=== PATIENT | female | born 1990 | race Two or more races ===

== ENCOUNTER 2018-09-08 08:30 | Outpatient (CLI) | payer OTHER | END 2018-09-08 08:31 | disposition critical access hospital (66) | LOC: EMS 08:30 | PROVIDERS: ATTEND Surgery | DX: R41.0 Disorientation, unspecified (principal); R45.1 Restlessness and agitation | CPT/HCPCS: A0425; A0429 ==

== ENCOUNTER 2018-09-08 08:41 | Emergency (ER) | payer OTHER ==
[2018-09-08] MEDS ORDERED: SODIUM CHLORIDE 0.9% 1,000 ML IV ONE (08:57)
--- NOTE | 2018-09-08 09:01 | ED Physician Documentation ---
PD HPI ALTERED MENTAL STATUS - Stated complaint Stated Complaint: MHE - Chief complaint Chief Complaint: General - History obtained from History obtained from: EMS - History of Present Illness Timing - onset: Today Timing - details: Still present Quality / character: Disoriented, Agitated, Combative Basline status: Alert and oriented X 3, Ambulatory - Additional information Additional information: The patient is a 28-year-old female who arrives via ambulance after her significant other called 911. She and the patient were in a verbal dispute last night. Her mental status was normal at that time. This morning she was disoriented, agitated, and combative. She has a history of using hallucinogenic drugs, such as peyote and spice. History is not able to be obtained from the patient due to her confusion and agitation. There are no past medical records at this facility on this patient. Review of Systems Unable to obtain: AMS PD PAST MEDICAL HISTORY - Present Medications Home Medications: Ambulatory Orders Medication Instructions Recorded Confirmed No Known Home Medications 09/08/18 09/08/18 - Allergies Allergies/Adverse Reactions: Allergies Allergy/AdvReac Type Severity Reaction Status Date / Time No Known Drug Allergies Allergy Verified 09/08/18 08:48 PD ED PE NORMAL - Vitals Vital signs reviewed: Yes (Tachycardic) - General General: Well developed/nourished, Other (Alert, restrained in soft restraints, and vacillating between extreme agitation, yelling obscenities, and calmness, speaking gibberish.) - HEENT HEENT: Atraumatic, PERRL, EOMI, Moist mucous membranes - Neck Neck: Supple, no meningeal sign, No adenopathy - Cardiac Cardiac: Other (Rapid rate, regular rhythm.) - Respiratory Respiratory: No respiratory distress, Clear bilaterally - Abdomen Abdomen: Soft, Non tender - Derm Derm: No rash - Extremities Extremities: No tenderness to palpate, No edema, No calf tenderness / cord - Neuro Neuro: No motor deficit, Other (Alert and vacillating between calm and agitation. Speaking some words that are understandable, but with repetitive phrases trailing off into gibberish.) Eye Opening: Spontaneous Motor: Obeys Commands Verbal: Incomprehensible GCS Score: 12 Results - Vitals Vitals: Oxygen O2 Source Room air - Labs Labs: Laboratory Tests 09/08/18 09/08/18 09/08/18 09:07 09:07 09:07 WBC 11.7 H RBC 4.32 Hgb 13.2 Hct 38.4 MCV 89.0 MCH 30.5 MCHC 34.3 RDW 12.5 Plt Count 249 MPV 8.6 Neut # (Auto) 10.1 H Lymph # (Auto) 1.1 L Runnels # (Auto) 0.4 Eos # (Auto) 0.0 Baso # (Auto) 0.1 Absolute Nucleated RBC 0.00 Nucleated RBC % 0.0 Sodium 135 Potassium 3.5 Chloride 104 Carbon Dioxide 20 L Anion Gap 11.0 BUN 5 L Creatinine 1.0 Estimated GFR (MDRD) 67 L Glucose 119 H Calcium 8.9 Total Bilirubin 0.5 AST 170 H ALT 62 H Alkaline Phosphatase 47 Total Protein 7.7 Albumin 4.6 Globulin 3.1 Albumin/Globulin Ratio 1.5 Lipase 29 HCG, Quant < 0.60 Urine Opiates Screen Ur Oxycodone Screen Urine Methadone Screen Ur Propoxyphene Screen Ur Barbiturates Screen Ur Tricyclics Screen Ur Phencyclidine Scrn Ur Amphetamine Screen U Methamphetamines Scrn U Benzodiazepines Scrn Urine Cocaine Screen U Cannabinoids Screen 09/08/18 10:01 WBC RBC Hgb Hct MCV MCH MCHC RDW Plt Count MPV Neut # (Auto) Lymph # (Auto) Runnels # (Auto) Eos # (Auto) Baso # (Auto) Absolute Nucleated RBC Nucleated RBC % Sodium Potassium Chloride Carbon Dioxide Anion Gap BUN Creatinine Estimated GFR (MDRD) Glucose Calcium Total Bilirubin AST ALT Alkaline Phosphatase Total Protein Albumin Globulin Albumin/Globulin Ratio Lipase HCG, Quant Urine Opiates Screen NEGATIVE Ur Oxycodone Screen NEGATIVE Urine Methadone Screen NEGATIVE Ur Propoxyphene Screen NEGATIVE Ur Barbiturates Screen NEGATIVE Ur Tricyclics Screen NEGATIVE Ur Phencyclidine Scrn NEGATIVE Ur Amphetamine Screen NEGATIVE U Methamphetamines Scrn NEGATIVE U Benzodiazepines Scrn NEGATIVE Urine Cocaine Screen NEGATIVE U Cannabinoids Screen NEGATIVE PD MEDICAL DECISION MAKING - ED course Complexity details: reviewed results, re-evaluated patient, considered differential, d/w patient ED course: The patient's transiently altered mental status is most likely caused by drug ingestion. Although her urine tox screen is negative for the drugs tested, the patient admits to using spice, which would not necessarily be detected on the urine tox screen. She was initially incoherent, with episodic agitation requiring soft restraints. Her laboratory evaluation was unremarkable. She was observed in the emergency department for several hours, during which time her mental status cleared and she became coherent. Her female partner was at her bedside, and appeared supportive. They declined consultation by medical facilities section director regarding drug use and coping mechanisms for relationship stress. The patient denies suicidal ideation. She is being discharged with contact information for outpatient counseling services if she chooses to pursue those services. Departure - Departure Disposition: 01 Home, Self Care Clinical Impression: Agitation Condition: Stable Instructions: ED Stress React Follow-Up: VERA Valadez [Provider Group] Comments: Refrain from using hallucinogenic drugs. Follow-up with your primary physician. Call to schedule appointment. Return to the emergency department if you develop increasing stress, agitation, or otherwise worsening symptoms. Discharge Date/Time: 09/08/18 12:07
[2018-09-08 09:25] LABS: BASOPHILS # (AUTO) 0.1 10^3/uL (0.0-0.1); HGB - HEMOGLOBIN 13.2 g/dL (12.0-16.0); LYMPHOCYTES # (AUTO) 1.1 10^3/uL (1.5-3.5); LYMPHOCYTES % (AUTO) 9.4 %; MEAN CORPUSCULAR HEMOGLOBIN 30.5 pg (27.0-31.0); MEAN CORPUSCULAR HGB CONC 34.3 g/dL (32.0-36.0); MEAN PLATELET VOLUME 8.6 fL (7.9-10.8); MONOCYTES # (AUTO) 0.4 10^3/uL (0.0-1.0); MONOCYTES % (AUTO) 3.6 %; NEUTROPHILS # (AUTO) 10.1 10^3/uL (1.5-6.6); PLT - PLATELET COUNT 249 10^3/uL (130-450); RED BLOOD COUNT 4.32 10^6/uL (4.20-5.40); RED CELL DISTRIBUTION WIDTH 12.5 % (12.0-15.0); WHITE BLOOD COUNT 11.7 x10^3/uL (4.8-10.8)
[2018-09-08 09:28] LABS: ALBUMIN 4.6 g/dL (3.2-5.5); ALBUMIN/GLOBULIN RATIO 1.5 (1.0-2.2); BILIRUBIN,TOTAL 0.5 mg/dL (0.2-1.0); CALCIUM 8.9 mg/dL (8.5-10.3); TOTAL PROTEIN 7.7 g/dL (6.7-8.2)
[2018-09-08 10:09] LABS: MUDS CUTOFF CONCENTRATIONS CUTOFF CONC BELOW:
[2018-09-08 10:28] LABS: AMPHETAMINE SCREEN,URINE NEGATIVE (NEGATIVE); BENZODIAZEPINES SCREEN, URINE NEGATIVE (NEGATIVE); COCAINE SCREEN URINE NEGATIVE (NEGATIVE); METHADONE SCREEN, URINE NEGATIVE (NEGATIVE); METHAMPHETAMINES SCREEN, URINE NEGATIVE (NEGATIVE); OPIATE SCREEN, URINE NEGATIVE (NEGATIVE); OXYCODONE SCREEN, URINE NEGATIVE (NEGATIVE); PROPOXYPHENE SCREEN, URINE NEGATIVE (NEGATIVE); TRICYCLIC ANTIDEPRESSANT,URINE NEGATIVE (NEGATIVE)
[2018-09-08 12:05] VITALS: BP 110/64
== END 2018-09-08 12:07 | disposition home or self-care (01) ==
LOC: ED 08:41
DX: R45.1 Restlessness and agitation (principal)
CPT/HCPCS: 36415; 80053; 80306; 83690; 84702; 85025; 96360; 96361; 99283; 99284

== ENCOUNTER 2018-10-22 16:23 | Emergency (ER) | payer OTHER ==
[2018-10-22] MEDS ORDERED: HYDROcod/ACETAM 5/325 MG TABLET PO STA (16:30)
--- NOTE | 2018-10-22 16:31 | ED Physician Documentation ---
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 No other injuries.) Review of Systems Constitutional: reports: Reviewed and negative Cardiac: reports: Reviewed and negative Respiratory: reports: Reviewed and negative PD PAST MEDICAL HISTORY - Past Surgical History Past Surgical History: No - Present Medications Home Medications: Ambulatory Orders Medication Instructions Recorded Confirmed Hydrocodone/Acetaminophen 1 - 2 each PO Q6H PRN #7 tablet 10/22/18 [Hydrocodon-Acetaminophen 5-325] Ibuprofen [Motrin] 800 mg PO Q8H PRN #30 tablet 10/22/18 - Allergies Allergies/Adverse Reactions: Allergies Allergy/AdvReac Type Severity Reaction Status Date / Time No Known Drug Allergies Allergy Verified 10/22/18 16:33 - Social History Does the pt smoke?: Yes Smoking Status: Current every day smoker - Immunizations Immunizations are current?: Yes PD ED PE NORMAL - Vitals Vital signs reviewed: Yes - General General: Alert and oriented X 3, No acute distress - Extremities Extremities: Other (There is a tiny laceration, may be 2 mm near the tip of the fourth finger nail on the ulnar side and she is tender back to the mid phalanx. There is no deformity. There is about a 10% subungual hematoma.) - Neuro Neuro: Alert and oriented X 3, Normal speech Results - Vitals Vitals: Vital Signs - 24 hr 10/22/18 16:30 Temperature 36.3 C L Heart Rate 84 Respiratory 16 Rate Blood Pressure 118/79 O2 Saturation 100 Oxygen O2 Source Room air - Rads (name of study) R 4th finger Radiology: EMP read contemporaneously (normal) Departure - Departure Disposition: 01 Home, Self Care Clinical Impression: Injury of right ring finger Condition: Good Record reviewed to determine appropriate education?: Yes Instructions: ED Crush Injury Finger No Fx Prescriptions: Hydrocodone/Acetaminophen [Hydrocodon-Acetaminophen 5-325] 1 - 2 each PO Q6H PRN #7 tablet PRN Reason: pain Ibuprofen [Motrin] 800 mg PO Q8H PRN #30 tablet PRN Reason: PAIN &/OR FEVER Comments: You can wash the wound on the tip of your finger with soap and water and keep it covered with a Band-Aid. Recheck with your doctor in a week if not better. Discharge Date/Time: 10/22/18 17:01
[2018-10-22 16:33] VITALS: BP 118/79
--- NOTE | 2018-10-22 17:10 | XRAY Report ---
Reason: 4th finger inj Procedure Date: 10/22/2018 Accession Number: [id number] / [id number] Procedure: XR - Finger(s) RT CPT Code: FULL RESULT: EXAM: RIGHT FOURTH DIGIT RADIOGRAPHY EXAM DATE: 10/22/2018 04:41 PM. CLINICAL HISTORY: 4th finger injury. Caught the fourth digit with a lawnmower blade. COMPARISON: None. TECHNIQUE: 3 views. FINDINGS: Bones: Normal. No fracture or bone lesion. Joints: Normal. No subluxations. Soft Tissues: Normal. No soft tissue swelling. IMPRESSION: Normal digit radiography. [facility]
== END 2018-10-22 17:01 | disposition home or self-care (01) ==
LOC: ED 16:23
DX: S69.91XA Unspecified injury of right wrist, hand and finger(s), initial encounter (principal); S61.214A Laceration without foreign body of right ring finger without damage to nail, initial encounter; S60.141A Contusion of right ring finger with damage to nail, initial encounter; W28.XXXA Contact with powered lawn mower, initial encounter; Y92.009 Unspecified place in unspecified non-institutional (private) residence as the place of occurrence of the external cause; F17.200 Nicotine dependence, unspecified, uncomplicated
CPT/HCPCS: 73140; 99283; A9270

== ENCOUNTER 2019-03-23 07:03 | Emergency (ER) | payer OTHER ==
[2019-03-23 07:16] VITALS: BP 112/67
--- NOTE | 2019-03-23 07:48 | XRAY Report ---
Reason: internal pain Procedure Date: 03/23/2019 Accession Number: [id number] / [id number] Procedure: XR - Knee 4 View RT CPT Code: FULL RESULT: EXAM: RIGHT KNEE RADIOGRAPHY EXAM DATE: 03/23/2019 07:38 AM. CLINICAL HISTORY: Internal pain. COMPARISON: None. TECHNIQUE: 4 views. FINDINGS: Bones: Normal. No fractures or bone lesions. Joints: Normal. No effusion. No subluxations. Soft Tissues: Normal. No soft tissue swelling. IMPRESSION: Normal knee radiography. RADIA
--- NOTE | 2019-03-23 07:58 | ED Physician Documentation ---
PD HPI LOWER EXT INJURY - Stated complaint Stated Complaint: KNEE PX - Chief complaint Chief Complaint: Trauma Ext - History obtained from History obtained from: Patient - History of Present Illness PD HPI LOW EXT INJURY LOCATION: Right, Knee Where injury occurred: Home Timing - onset: Last night Timing - duration: Hours Timing - details: Abrupt onset, Still present Improved by: Rest, Immobilization Worsened by: Moving, Palpating Associated symptoms: No: Weakness, Numbness, Tingling, Swelling Contributing factors: No: Anticoagulated Similar symptoms before: Diagnosis (ACL and MCL tear from injury to other knee) Recently seen: Not recently seen - Additional information Additional information: Previously well 28-year-old female was putting up some hollowing decorations yesterday when she bent down and flexed her knee completely she heard a loud pop and since then has had some pain in her knee and some difficulty walking. She has pain with weightbearing and she is able to walk but with a limp. She has had injury to her left knee that required surgical intervention she had a ACL tear. That was related to an injury. Review of Systems Constitutional: denies: Fever Eyes: denies: Decreased vision Ears: denies: Ear pain Nose: denies: Congestion Throat: denies: Sore throat Respiratory: denies: Cough GI: denies: Vomiting PD PAST MEDICAL HISTORY - Past Medical History Past Medical History: No - Past Surgical History Past Surgical History: No Ortho: Knee replacement HEENT: Tonsil/Adenoidectomy - Present Medications Home Medications: Ambulatory Orders Medication Instructions Recorded Confirmed No Known Home Medications 03/23/19 03/23/19 - Allergies Allergies/Adverse Reactions: Allergies Allergy/AdvReac Type Severity Reaction Status Date / Time No Known Drug Allergies Allergy Verified 03/23/19 07:16 - Social History Does the pt smoke?: Yes Smoking Status: Current every day smoker Does the pt drink ETOH?: No Does the pt have substance abuse?: No - Immunizations Immunizations are current?: Yes - POLST Patient has POLST: No PD ED PE NORMAL - Vitals Vital signs reviewed: Yes (normal ) - General General: Alert and oriented X 3, No acute distress, Well developed/nourished - HEENT HEENT: Atraumatic, PERRL, EOMI - Respiratory Respiratory: No respiratory distress - Derm Derm: Normal color, Warm and dry, No rash - Extremities Extremities: No deformity, No edema, Other (Exam of the right knee externally appears normal without joint line pain to palpation. There is no obvious effusion. The knee is able to run through a full ROM. There does appear to be some mild laxity to the ACL on anterior drawer sign. The lateral collaterals appear stable to testing. ) - Neuro Neuro: Alert and oriented X 3, consular officer 2-12 intact, No motor deficit, No sensory deficit, Normal speech Eye Opening: Spontaneous Motor: Obeys Commands Verbal: Oriented GCS Score: 15 - Psych Psych: Normal mood, Normal affect Results - Vitals Vitals: Vital Signs - 24 hr 03/23/19 07:10 Temperature 36.1 C L Heart Rate 76 Respiratory 16 Rate Blood Pressure 112/67 O2 Saturation 100 Oxygen O2 Source Room air - Rads (name of study) knee Radiology: Prelim report reviewed (Impression: Normal knee radiography.), EMP read indepedently, See rad report PD MEDICAL DECISION MAKING - ED course Complexity details: reviewed results, re-evaluated patient, considered differential, d/w patient ED course: 28-year-old female with a hyperflexion injury to the right knee has some laxity to the ACL on examination and she is placed into a knee immobilizer and will follow up with orthopedics. Departure - Departure Disposition: 01 Home, Self Care Clinical Impression: Right knee sprain Qualifiers: Encounter type: initial encounter Involved ligament of knee: anterior cruciate ligament Qualified Code(s): S83.511A - Sprain of anterior cruciate ligament of right knee, initial encounter Condition: Stable Instructions: ED Sprain Knee Follow-Up: [facility] [Provider Group] VERA Valadez [Provider Group]
== END 2019-03-23 08:49 | disposition home or self-care (01) ==
LOC: ED 07:03
DX: S83.511A Sprain of anterior cruciate ligament of right knee, initial encounter (principal); X50.1XXA Overexertion from prolonged static or awkward postures, initial encounter; Y93.E9 Activity, other interior property and clothing maintenance; Y92.009 Unspecified place in unspecified non-institutional (private) residence as the place of occurrence of the external cause; F17.200 Nicotine dependence, unspecified, uncomplicated
CPT/HCPCS: 99282; 99283

== ENCOUNTER 2019-07-22 15:13 | Emergency (ER) | payer OTHER ==
[2019-07-22 15:25] VITALS: BP 122/82
--- NOTE | 2019-07-22 15:38 | ED Physician Documentation ---
PD HPI HEENT - Stated complaint Stated Complaint: RUNNY NOSE, HEADACHE, DIFFICULTY BREATHING - Chief complaint Chief Complaint: Resp - History obtained from History obtained from: Patient - History of Present Illness Timing - onset: Today Timing - duration: Hours Timing - details: Abrupt onset, Still present Location: Nose Associated symptoms: Congestion, Rhinorrhea, Cough, Other (sneezing). No: Fever Similar symptoms before: Has not had sx before Recently seen: Not recently seen - Additional information Additional information: 28-year-old female who has had recent travel to [facility] and went through the air port in [facility] has returned from her travels last night and this morning when she awoke she developed acute nasal congestion with sneezing and cough and rhinorrhea. She denies any fever or muscle aches or joint aches and pains. She denies any specific allergic exposure. She has come back to her home where all of her things were present. She did not have anybody stay in her home while she was gone. She does have a dog there are no new pets in the house. There is currently an outbreak of coronavirus from [place]. Review of Systems Constitutional: denies: Fever, Chills, Myalgias, Fatigue, Sweats Eyes: denies: Decreased vision Ears: denies: Ear pain Nose: reports: Rhinorrhea / runny nose, Congestion Throat: denies: Sore throat Cardiac: denies: Chest pain / pressure, Palpitations Respiratory: reports: Dyspnea, Cough GI: denies: Abdominal Pain, Nausea, Vomiting : denies: Dysuria PD PAST MEDICAL HISTORY - Past Surgical History Past Surgical History: No Ortho: Knee replacement HEENT: Tonsil/Adenoidectomy - Present Medications Home Medications: Ambulatory Orders Medication Instructions Recorded Confirmed No Known Home Medications 03/23/19 03/23/19 - Allergies Allergies/Adverse Reactions: Allergies Allergy/AdvReac Type Severity Reaction Status Date / Time No Known Drug Allergies Allergy Verified 03/23/19 07:16 - Social History Does the pt smoke?: Yes Smoking Status: Current every day smoker Does the pt drink ETOH?: No Does the pt have substance abuse?: No - Immunizations Immunizations are current?: Yes - POLST Patient has POLST: No PD ED PE NORMAL - Vitals Vital signs reviewed: Yes (hypertensive diastolic mild ) - General General: Alert and oriented X 3, No acute distress, Well developed/nourished, Other (28 y/o female wearing a mask with obvious nasal quality to the voice. ) - HEENT HEENT: Atraumatic, PERRL, EOMI, Ears normal, Moist mucous membranes, Pharynx benign, Dentition benign - Neck Neck: Supple, no meningeal sign, No bony TTP - Cardiac Cardiac: RRR, No murmur - Respiratory Respiratory: No respiratory distress, Clear bilaterally - Abdomen Abdomen: Soft, Non tender - Back Back: No CVA TTP, No spinal TTP - Derm Derm: Normal color, Warm and dry, No rash - Extremities Extremities: No deformity, No tenderness to palpate, Normal ROM s pain, No edema, No calf tenderness / cord - Neuro Neuro: Alert and oriented X 3, strategic insights lead 2-12 intact, No motor deficit, No sensory deficit, Normal speech Eye Opening: Spontaneous Motor: Obeys Commands Verbal: Oriented GCS Score: 15 - Psych Psych: Normal mood, Normal affect Results - Vitals Vitals: Vital Signs - 24 hr 07/22/19 15:23 Temperature 36.8 C Heart Rate 69 Respiratory 16 Rate Blood Pressure 122/82 H O2 Saturation 100 Oxygen O2 Source Room air - Labs Labs: Laboratory Tests 07/22/19 16:01 Influenza A (Rapid) Negative Influenza B (Rapid) Negative PD MEDICAL DECISION MAKING - ED course Complexity details: reviewed results, re-evaluated patient, considered differential, d/w patient ED course: 28-year-old previously well female with acute nasal congestion and sneezing does not have evidence of inflammation on physical examination. She does not have fever or arthralgias. Her symptoms are consistent with an acute allergic rhin itis. An influenza swab is obtained. The patient does not appear ill. The influenza swab is negative. Recommendations from the CDC for testing for coronavirus are recent travel to the [facility] known contact with an individual with coronavirus and fever with bilateral infiltrate. The patient has none of these criteria and further testing is not indicated. She is administered decadron for URI. Departure - Departure Disposition: Home, Self Care Clinical Impression: Upper respiratory tract infection Qualifiers: URI type: unspecified URI Qualified Code(s): J06.9 - Acute upper respiratory infection, unspecified Condition: Stable Instructions: ED URI Viral Follow-Up: VERA Valadez [Provider Group]
[2019-07-22] MEDS ORDERED: DEXAMETHASONE 10 MG/ML VIAL PO STA (17:01)
[2019-07-22] MEDS ORDERED: CHERRY SYRUP 10 ML UDC PO ONE (17:01)
== END 2019-07-22 17:25 | disposition home or self-care (01) ==
LOC: ED 15:13
DX: J06.9 Acute upper respiratory infection, unspecified (principal); F17.200 Nicotine dependence, unspecified, uncomplicated
CPT/HCPCS: 87275; 87276; 99283; 99284; A9270

== ENCOUNTER 2021-07-01 08:00 | Outpatient (CLI) | payer OTHER | END 2021-07-01 23:59 | LOC: LAB.N 08:00 | PROVIDERS: ATTEND Family Medicine | DX: R50.9 Fever, unspecified (principal); R05.9 Cough, unspecified; Z20.822 Contact with and (suspected) exposure to COVID-19 | CPT/HCPCS: 87275; 87276 ==

== ENCOUNTER 2021-07-09 08:15 | Outpatient (CLI) | payer OTHER | END 2021-07-09 23:59 | disposition home or self-care (01) | LOC: LAB.N 08:15 | PROVIDERS: ATTEND Physician Assistant | DX: U07.1 COVID-19 (principal) ==